=== PATIENT | female | born 1970 | race Caucasian/White ===

== ENCOUNTER → 2023-04-12 11:36 | Outpatient (REF) | payer OTHER, SELFPAY | LOC: WDC 11:36 | PROVIDERS: ATTENDING PHYSICIAN Physician Assistant Medical | DX: Z12.31 Encounter for screening mammogram for malignant neoplasm of breast (principal) | CPT/HCPCS: 77063; 77067 ==

== ENCOUNTER → 2024-04-14 16:07 | Outpatient (REF) | payer OTHER, SELFPAY | LOC: WDC 16:07 | PROVIDERS: ATTENDING PHYSICIAN Nurse Practitioner Adult Health; FAMILY PHYSICIAN Physician Assistant Medical | DX: Z12.31 Encounter for screening mammogram for malignant neoplasm of breast (principal) | CPT/HCPCS: 77063; 77067 ==

== ENCOUNTER 2024-05-16 21:21 | Emergency (ER) | payer OTHER, SELFPAY ==
[2024-05-16 21:21] VITALS: BMI 25.8
[2024-05-16 21:24] VITALS: BP 125/86
[2024-05-16 21:47] VITALS: BP 126/93
--- NOTE | 2024-05-16 22:29 | ED.GENMED ---
History of Present Illness
General
Chief Complaint: Eye Problems
Source: patient
Exam Limitations: none
Time Seen by Provider: 05/16/24 21:50
Nursing documentation reviewed up to this point in time: agreed with
History of Present Illness
History of Present Illness:
53 y/o F
ASD
here with L eye pain after she accidentally scraped her L eye with her fingernail a few huors ago while inthe shower
she feels pain with blinking and pain worse with crying
she has not had any phtosensitivity, swelling, vision changes, vision loss
she did not have her contacts in at the time and since has been using her glasses
Past History
Past History
ED Past Medical History: Negative Asthma, HTN, Hypercholesterolemia or NIDDM
ED Past Surgical History: (X 2)
Social History
Tobacco: Former smoker
Alcohol: Occasional
Personal:
Living: with family
Review of Systems
Review of Systems
Allergies reviewed?: Yes
All Other Systems: Not applicable
Phy Exam
Physical Exam
Physical Exam:
GENERAL: Alert , in no apparent distress
EYE: pupils equal and reactive 3 mm
L corneal abrasion 3x2 mm just lateral to the pupil around 3/4 oclock on the cornea
minimal conjunctival injection
no fb in hte lids
no swelling
full EOMs
visual acuity normal
SKIN: Warm and dry, skin intact.
PSYCH: Normal and appropriate interaction.
Course
Orders/Labs/Results
Orders:
Orders
05/16/24 21:50
Visual Acuity- Treatment ONCE
05/16/24 23:00
Ofloxacin [Ocuflox] See Dose Instructions LEFT EYE QID
Vital Signs
Initial and Last Documented VS:
Initial Vital Signs
Temp Pulse Resp BP Pulse Ox
37.1 C 71 20 125/86 99
05/16/24 21:24 05/16/24 21:24 05/16/24 21:24 05/16/24 21:24 05/16/24 21:24
Last Documented Vital Signs
Temp Pulse Resp BP Pulse Ox
37.1 C 71 20 126/93 99
05/16/24 21:24 05/16/24 21:24 05/16/24 21:24 05/16/24 21:47 05/16/24 21:24
MDM/Problems Addressed
Differential Diagnosis Includes:
corneal abrasion laceration
MDM/Problems Addressed:
53 y/o F with abrasion to L cornea from her fingernail
vision normal
no photphobia
contact lens wearer
will cover with oflox drops
recommend eye f/u
*Critical Care Note
Total Time (30-74mins, 75-104mins- exclusive of procedures): Not Applicable
ED Attending Note
-
Portions of this chart may have been created with voice recognition software.� Occasional wrong word or��sound alike� substitutions may have occurred due to the inherent limitations of voice recognition software.
Discharge Plan
Departure
Patient Disposition: Home (Routine Discharge)
Date of Disposition: 05/16/24
Time of Disposition: 22:31
Patient with high blood pressure during this ER visit?: No
Condition: Fair
Discharge Problem:
Corneal abrasion
Instructions: Corneal Abrasion (DC)
Prescriptions:
New
ofloxacin 0.3 % drops
1 drp ophthalmic (eye) QID 7 Days Qty: 5 0RF
Referrals:
Daniela Shaw PA [Family Provider] -
Activity Restrictions/Additional Instructions:
YOU HAVE A SMALL ABRASION ON YOUR CORNEA
USE THE DROPS PRESCRIBED WHILE AWAKE
MOTRIN FOR PAIN EVERY 8HOURS
USE SUNGLASSES OUTSIDE IF PHOTOSENSITIVE
FOLLOW UP WITH YOUR EYE DOCTOR IN 2 DAYS TO ENSURE IT IS HEALING
RETURN FOR WORSE PAIN, VISION LOSS
NO CONTACT LENS UNTIL YOUR EYE DOCTOR SAYS OK
Interventions
Interventions:
*Risk Screen - Suicide Last Done: 05/16/24 21:24
*General Assessment Last Done: 05/16/24 21:24
*Neglect/Abuse Screening Last Done: 05/16/24 21:24
*ED- Fall Risk Assessment Last Done: 05/16/24 21:24
*ED COVID-19 Vaccine History Last Done: 05/16/24 21:24
*Nursing Disposition Last Done: 05/16/24 23:15
Discharge Date and Time
Discharge Date/Time: 05/16/24 23:16
Print Language: AMERICAN
[2024-05-16] MEDS: OCUFLOX 2 DROP LEFT EYE (23:09)
== END 2024-05-16 23:16 | disposition home or self-care (01) ==
LOC: EMR 21:21
PROVIDERS: EMERGENCY PHYSICIAN Emergency Medicine; FAMILY PHYSICIAN Physician Assistant Medical
DX: S05.02XA Injury of conjunctiva and corneal abrasion without foreign body, left eye, initial encounter (principal); X58.XXXA Exposure to other specified factors, initial encounter; Z87.891 Personal history of nicotine dependence
CPT/HCPCS: 99282

== ENCOUNTER → 2024-12-30 10:01 | Outpatient (REF) | payer OTHER, SELFPAY | LOC: WDC 10:01 | PROVIDERS: ATTENDING PHYSICIAN Nurse Practitioner Adult Health; FAMILY PHYSICIAN Physician Assistant Medical | DX: R92.2 Inconclusive mammogram (principal) | CPT/HCPCS: 76641 ==